=== PATIENT | male | born 1935 | race Two or more races ===

== ENCOUNTER 2017-03-30 08:26 | Inpatient (IN) | payer MEDICARE, OTHER ==
[~2017-03-30] VITALS: Ht 170.2 cm; Wt 67.1 kg
[2017-03-30] VITALS (12 sets, daily range): BP systolic 141–164; BP diastolic 58–89
[~2017-03-30 08:26] MED LIST: ceFAZolin sod 1 GM in NS 55 ML IVPB ONE
--- NOTE | 2017-03-30 08:30 | Anethesia Preoperative Eval ---
Anesthesia Pre-op PMH/ROS General Date of Evaluation: Mar 30, 2017 Anesthesiologist: Yadiel ASA Score: ASA 3 Mallampati Score Class I : Soft palate, uvula, fauces, pillars visible Class II: Soft palate, uvula, fauces visible Class III: Soft palate, base of uvula visible Class IV: Only hard plate visible Mallampati Classification: Class II Surgeon: Nidhi Diagnosis: Prostate Cancer Surgical Procedure: TURP Anesthesia History: none Family History: no anesthesia problems Allergies: Coded Allergies: PENICILLINS (Verified Allergy, Unknown, UNKNOWN, 03/30/17) PATIENT WAS TOLD ONLY THAT HE HAS ALLERGY TO PENICILLIN Medications: see eMAR Past Medical History Cardiovascular: Reports: HTN, other - HLD, Denies: CAD, ID, arrhythmia, valve dz Pulmonary: Denies: COPD, LANDON, asthma, other Gastrointestinal/Genitourinary: Reports: GERD, other - BPH, vertigo, Denies: CRI, ESRD Neurologic/Psychiatric: Reports: TIA, dementia, depression/anxiety, Denies: CVA, other Endocrine: Reports: DM, Denies: hypothyroidism, other, steroids HEENT: Denies: [place] (L), [place] (R), cataract (L), cataract (R), glaucoma, other Hematology/Immune: Denies: DVT, anemia, bleeding disorder, other Musculoskeletal/Integumentary: Reports: OA, other - gout, Denies: DDD, DJD, RA, edema PSxH Narrative: T&A, bladder stones Anesthesia Pre-op Phys. Exam Physician Exam ee chart Constitutional: NAD Cardiovascular: RRR Respiratory: CTA Airway Exam Mallampati Score: Class II MO: limited ROM: limited Teeth: missing, broken Anesthesia Pre-op A/P Labs see chart Studies Pre-op Studies: EKG - sr Risk Assessment & Plan Assessment: ASA III Plan: GA Status Change Before Surgery: No Pre-Antibiotics Drug: Ancef 1g Given Within 1 Hr of Incision: Yes Time Given: 13:00 RUPINDER BARKER M.D. Mar 30, 2017 08:30
[2017-03-30] MEDS ORDERED: CAPTOPRIL25 M1 PO (10:42)
[2017-03-30] MEDS ORDERED: LABETALOL HCL200 MG ORAL (10:43)
[2017-03-30] MEDS ORDERED: ADALAT20 MG ORAL (10:43)
[2017-03-30] MEDS ORDERED: LISINOPRIL20 MG ORAL (10:44)
[2017-03-30] MEDS ORDERED: BENICAR HCT 401 EACH ORAL (10:48)
[2017-03-30] MEDS ORDERED: ZANTAC150 MG ORAL (10:49)
[2017-03-30] MEDS ORDERED: ULORIC40 MG ORAL (10:50)
--- NOTE | 2017-03-30 11:12 | Pre-Procedure Note/Attestation ---
Pre-Procedure Note/Attestation Complete Prior to Procedure Planned Procedure: not applicable Procedure Narrative: Laser ves open cystolopaxy with TURP Indications for Procedure Pre-Operative Diagnosis: bladder stone BPH Attestation I attest that I discussed the nature of the procedure; its benefits; risks and complications; and alternatives (and the risks and benefits of such alternatives ), prior to the procedure, with the patient (or the patient's legal financial representative). I attest that, if there was a reasonable possibility of needing a blood transfusion, the patient (or the patient's legal financial representative) was given the [facility] standardized written summary, pursuant to the [place] Blood Safety Act ([place] Health and Safety Code # 1645, as amended). I attest that I re-evaluated the patient just prior to the surgery and that there has been no change in the patient's H&P, except as documented below: Gigi Terrell MD Mar 30, 2017 11:12
--- NOTE | 2017-03-30 12:35 | Brief Operative Note ---
Immediate Post Operative Note Operative Note Pre-op Diagnosis: bladder stone BPH Procedure: removal and replacement of penille prostheses Post-op Diagnosis: same Post-op Diagnosis: same as pre-op plus Surgeon: Benito Terrell Anesthesia: general Specimen: none Complications: none Condition: stable Estimated Blood Loss: minimal Implant(s) used?: Yes Gigi Terrell MD Mar 30, 2017 12:35
--- NOTE | 2017-03-30 12:36 | Brief Operative Note ---
Immediate Post Operative Note Operative Note Pre-op Diagnosis: bladder stone BPH Procedure: lytholopaxy TURP Post-op Diagnosis: same Gigi Terrell MD Mar 30, 2017 12:36
[2017-03-30] MEDS ORDERED: Zemuron 50mg/5ml Inj IV ONE (12:50)
[2017-03-30] MEDS ORDERED: fentaNYL 100 mcg/2 mL IV ONE (12:50)
[2017-03-30] MEDS ORDERED: NS Irrig 4000ml IRRIG ONE ×2 (12:50→13:40)
[2017-03-30] MEDS ORDERED: Dexamethasone 4mg/ml vial ONE (12:50)
[2017-03-30] MEDS ORDERED: Sterile Water Irrig 1000ml IRRIG ONE (12:50)
[2017-03-30] MEDS ORDERED: Lidocaine 1% MPF 10mg/ml 5ml ONE (12:50)
[2017-03-30] MEDS ORDERED: LR 1000ml ONE (12:50)
[2017-03-30] MEDS ORDERED: Metoclopramide 10mg/2ml Inj ONE (12:50)
--- NOTE | 2017-03-30 13:18 | Immediate Post-Op Evaluation ---
Immediate Post-Op Evalulation Immediate Post-Op Evalulation Procedure: TURP, cystolitholapaxy Date of Evaluation: Mar 30, 2017 Time of Evaluation: 15:08 IV Fluids: 800 Blood Products: 0 Estimated Blood Loss: 150 Urinary Output: 0 Blood Pressure Systolic: 138 Blood Pressure Diastolic: 81 Pulse Rate: 61 Respiratory Rate: 16 O2 Sat by Pulse Oximetry: 100 Temperature (Fahrenheit): 98.6 Pain Score (1-10): 0 Nausea: No Vomiting: No Complications 0 Patient Status: awake, reacts, patent, none Hydration Status: adequate Drug: Ancef 1g Given Within 1 Hr of Incision: Yes Time Given: 13:00 RUPINDER BARKER M.D. Mar 30, 2017 13:18
[2017-03-30] MEDS ORDERED: LR 1000ml 1,000 ML IVLG SCH (13:19)
[2017-03-30] MEDS ORDERED: Ketorolac 30mg Inj IV PRN (13:30)
[2017-03-30] MEDS ORDERED: Hydromorphone 0.5mg/0.5ml inj IVP PRN (13:30)
[2017-03-30] MEDS ORDERED: fentaNYL 100 mcg/2 mL IV PRN (13:30)
[2017-03-30] MEDS ORDERED: DiphenhydrAMINE 50mg/ml Inj IVP PRN (13:30)
[2017-03-30] MEDS ORDERED: LORazepam Inj 2mg/ml 1ml IV PRN (13:30)
--- NOTE | 2017-03-30 15:11 | Brief Operative Note ---
Immediate Post Operative Note Operative Note Pre-op Diagnosis: bladder stone BPH Procedure: lytholopaxy TURP Post-op Diagnosis: same Post-op Diagnosis: same as pre-op Gigi Terrell MD Mar 30, 2017 15:11
[2017-03-30 16:27] LABS: MEAN CORPUSCULAR HEMOGLOBIN 21.7 PG (27.0-31.0); MEAN CORPUSCULAR VOLUME 70 FL (80-99); MEAN PLATELET VOLUME 6.7 FL (6.5-10.1); PLATELET COUNT 690 K/UL (150-450); RED CELL DISTRIBUTION WIDTH 16.4 % (11.6-14.8)
[2017-03-30 16:32] LABS: WHITE BLOOD COUNT 31.3 K/UL (4.8-10.8)
[2017-03-30 17:00] LABS: ANION GAP 13 (5-15); CALCIUM 8.5 mg/dL (8.6-10.2); CARBON DIOXIDE 18 mEQ/L (20-30); CHLORIDE 109 mEQ/L (98-107); CREATININE 1.3 mg/dL (0.7-1.2); HEMOLYSIS 3; POTASSIUM 5.1 mEQ/L (3.4-4.9); SODIUM 140 mEQ/L (135-145)
[2017-03-30] MEDS ORDERED: D5 1/2NS w/KCl 20mEq 1,000 ML IV SCH (17:00)
[2017-03-30] MEDS: Docusate 100mg cap ORAL SCH (17:25)
[2017-03-30] MEDS: HYDROmorphone 1mg/ml Carpuject IVP PRN ×2 (17:31→21:30)
[2017-03-30 17:51] LABS: BAND NEUTROPHILS % (MANUAL) 1 % (0-8); BASOPHILS % (MANUAL) 2 % (0-2); LYMPHOCYTES % (MANUAL) 7 % (20-45); NEUTROPHILS % (MANUAL) 89 % (45-75); TOTAL CELLS COUNTED 100
[2017-03-30 17:52] LABS: EOSINOPHILS % (MANUAL) 0 % (0-3); PLATELET ESTIMATE INCREASED
[2017-03-30 17:53] LABS: ANISOCYTOSIS 2+; HYPOCHROMASIA 2+; MICROCYTES 2+; PLATELET MORPHOLOGY NORMAL; POLYCHROMASIA 1+
--- NOTE | 2017-03-30 18:39 | History and Physical ---
History of Present Illness General Date patient seen: Mar 30, 2017 Present Illness HPI 81 year old male with hx of BPH, HTN, DM, Gout, admitted for elective TURP. Postoperatively pt is admitted for routine post op care. Allergies: Coded Allergies: PENICILLINS (Verified Allergy, Unknown, UNKNOWN, 03/30/17) PATIENT WAS TOLD ONLY THAT HE HAS ALLERGY TO PENICILLIN Medication History Scheduled Captopril (Captopril), 25 MG PO PRN, (Reported) Febuxostat (Uloric), 40 MG ORAL DAILY, (Reported) Labetalol Hcl* (Normodyne*), 200 MG ORAL EVERY 12 HOURS, (Reported) Lisinopril (Lisinopril*), 40 MG ORAL DAILY, (Reported) Nifedipine (Nifedipine*), 30 MG ORAL BID, (Reported) Olmesartan/Hydrochlorothiazide 40-12.5MG (Benicar Hct 40-12.5 Mg Tablet), 1 TAB ORAL HS, (Reported) Ranitidine Hcl* (Zantac*), 150 MG ORAL DAILY, (Reported) Patient History Healthcare decision maker Y Resuscitation status Full Code Advanced Directive on File No Past Medical/Surgical History Past Medical/Surgical History: (1) BPH (benign prostatic hyperplasia) (2) Hypertension (3) Gout (4) Diabetes mellitus Review of Systems All Other Systems: negative except mentioned in HPI Physical Exam General Appearance: WD/WN, no apparent distress Lines, tubes and drains: peripheral HEENT: normocephalic, atraumatic Neck: non-tender, normal alignment, limited range of motion Respiratory/Chest: lungs clear, normal breath sounds Cardiovascular/Chest: normal peripheral pulses, normal rate Abdomen: normal bowel sounds, non tender Genitourinary/Rectal: normal genital exam Extremities: normal range of motion Skin Exam: normal pigmentation Neurologic: youth pastor II-XII grossly normal Last 24 Hour Vital Signs Date Time Temp Pulse Resp B/P Pulse Ox O2 Delivery O2 Flow Rate FiO2 03/30/17 16:21 98.0 03/30/17 16:09 98.0 03/30/17 16:05 98.0 68 16 160/67 99 Nasal Cannula 3.0 03/30/17 15:51 73 17 164/70 99 Nasal Cannula 3.0 03/30/17 15:40 73 18 161/67 99 Nasal Cannula 3.0 03/30/17 15:36 61 16 100 03/30/17 15:25 75 15 163/69 100 Nasal Cannula 3.0 03/30/17 15:13 78 21 162/89 100 Nasal Cannula 3.0 03/30/17 15:08 68 11 150/60 100 Simple Mask 6.0 03/30/17 15:03 98.6 68 11 164/66 100 Simple Mask 6.0 03/30/17 14:45 97.0 57 20 153/60 95 Room Air 03/30/17 14:30 96.2 70 20 154/67 95 Room Air 03/30/17 10:25 97.1 62 18 150/60 97 Room Air Laboratory Tests Test 03/30/17 10:35 03/30/17 16:15 Potassium Level 4.7 mEQ/L (3.4-4.9) 5.1 mEQ/L (3.4-4.9) H White Blood Count 31.3 K/UL (4.8-10.8) *H Red Blood Count 7.10 M/UL (4.70-6.10) H Hemoglobin 15.4 G/DL (14.2-18.0) Hematocrit 49.8 % (42.0-52.0) Mean Corpuscular Volume 70 FL (80-99) L Mean Corpuscular Hemoglobin 21.7 PG (27.0-31.0) L Mean Corpuscular Hemoglobin Concent 31.0 G/DL (32.0-36.0) L Red Cell Distribution Width 16.4 % (11.6-14.8) H Platelet Count 690 K/UL (150-450) H Mean Platelet Volume 6.7 FL (6.5-10.1) Neutrophils (%) (Auto) % (45.0-75.0) Lymphocytes (%) (Auto) % (20.0-45.0) Monocytes (%) (Auto) % (1.0-10.0) Eosinophils (%) (Auto) % (0.0-3.0) Basophils (%) (Auto) % (0.0-2.0) Differential Total Cells Counted 100 Neutrophils % (Manual) 89 % (45-75) H Lymphocytes % (Manual) 7 % (20-45) L Monocytes % (Manual) 1 % (1-10) Eosinophils % (Manual) 0 % (0-3) Basophils % (Manual) 2 % (0-2) Band Neutrophils 1 % (0-8) Platelet Estimate Increased H Platelet Morphology Normal Polychromasia 1+ Hypochromasia 2+ Anisocytosis 2+ Microcytosis 2+ Sodium Level 140 mEQ/L (135-145) Chloride Level 109 mEQ/L (98-107) H Carbon Dioxide Level 18 mEQ/L (20-30) L Anion Gap 13 (5-15) Blood Urea Nitrogen 37 mg/dL (7-23) H Creatinine 1.3 mg/dL (0.7-1.2) H Estimat Glomerular Filtration Rate mL/min (>60) Glucose Level 164 mg/dL (74-106) H Calcium Level 8.5 mg/dL (8.6-10.2) L Height (Feet): 5 Height (Inches): 7.00 Weight (Pounds): 148 Medications Current Medications Medications (Trade) Dose Ordered Sig/Harrison Route PRN Reason Start Time Stop Time Status Last Admin Dose Admin Acetaminophen (Tylenol) 650 mg Q6H PRN ORAL Mild Pain (Pain Scale 1-3) 03/30/17 15:45 04/29/17 15:44 Acetaminophen 650 mg 650 mg Q4H PRN ORAL FEVER 03/30/17 15:45 04/29/17 15:44 Cefazolin Sodium (Ancef 2gm/50ml premix) 50 ml @ 100 mls/hr Q8H IV 03/30/17 21:00 03/31/17 05:29 Dextrose/Sodium Chloride (D5 0.45% NS) 1,000 ml @ 100 mls/hr Q10H IV 03/30/17 18:40 04/29/17 18:39 Docusate Sodium (Colace) 100 mg TWICE A DAY ORAL 03/30/17 18:00 04/29/17 17:59 03/30/17 17:25 Hydromorphone HCl (Dilaudid) 1 mg Q3H PRN IVP pain score 4-6 03/30/17 15:45 04/06/17 15:44 03/30/17 17:31 Labetalol HCl (Normodyne) 200 mg EVERY 12 HOURS ORAL 03/30/17 21:00 04/29/17 20:59 Lisinopril (Prinivil) 40 mg DAILY ORAL 03/31/17 09:00 04/30/17 08:59 Non-Formulary Medication (Non-Formulary Med) 1 ea BID ORAL 03/30/17 21:00 04/29/17 20:59 UNV Non-Formulary Medication (Non-Formulary Med) 1 ea DAILY ORAL 03/30/17 21:00 04/29/17 20:59 UNV Non-Formulary Medication (Non-Formulary Med) 1 ea DAILY ORAL 03/31/17 09:00 04/30/17 08:59 UNV Ondansetron HCl (Zofran) 4 mg Q6H PRN IVP Nausea & Vomiting 03/30/17 15:45 04/29/17 15:44 Ranitidine HCl 150 mg 150 mg DAILY ORAL 03/31/17 09:00 04/30/17 08:59 Temazepam (Restoril) 7.5 mg HSPRN PRN ORAL Insomnia 03/30/17 15:45 04/06/17 15:44 Assessment/Plan Problem List: (1) S/P TURP ICD Codes: Z90.79 - Acquired absence of other genital organ(s) SNOMED: 49312042, 329055915 (2) BPH (benign prostatic hyperplasia) ICD Codes: N40.0 - Benign prostatic hyperplasia without lower urinary tract symptoms SNOMED: 488252805, 039011935 (3) Hypertension ICD Codes: I10 - Essential (primary) hypertension SNOMED: 39610097 (4) Gout ICD Codes: M10.9 - Gout, unspecified SNOMED: 15527089 (5) Diabetes mellitus ICD Codes: E11.9 - Type 2 diabetes mellitus without complications SNOMED: 40751417 Assessment/Plan pain management bladder irrigation sliding scale, insuline coverage, diabetic diet check electrolytes dvt prophylaxis PALMIRA LANGSTON Mar 30, 2017 18:39
[2017-03-30] MEDS: D5 1/2NS 1,000 ML IV SCH (18:56)
[2017-03-30] MEDS: Labetalol 200mg tab ORAL SCH (21:13)
[2017-03-30] MEDS: ceFAZolin 2gm/50 ML IV SCH (21:13)
[2017-03-30] MEDS ORDERED: ceFAZolin sod 2 GM in D5W 110 ML IV SCH (22:00)
[2017-03-31] VITALS (15 sets, daily range): BP systolic 0–145; BP diastolic 0–63
[2017-03-31] MEDS: HYDROmorphone 1mg/ml Carpuject IVP PRN ×3 (01:42→10:09)
[2017-03-31] MEDS: ceFAZolin 2gm/50 ML IV SCH (04:16)
[2017-03-31] MEDS: D5 1/2NS 1,000 ML IV SCH ×2 (04:16→14:42)
[2017-03-31 06:21] LABS: MEAN CORPUSCULAR HEMOGLOBIN 21.2 PG (27.0-31.0); MEAN CORPUSCULAR HGB CONC 29.5 G/DL (32.0-36.0); MEAN CORPUSCULAR VOLUME 72 FL (80-99); MEAN PLATELET VOLUME 7.1 FL (6.5-10.1); RED BLOOD COUNT 6.16 M/UL (4.70-6.10); RED CELL DISTRIBUTION WIDTH 16.9 % (11.6-14.8)
[2017-03-31 06:34] LABS: PLATELET COUNT 1021 K/UL (150-450); WHITE BLOOD COUNT 47.3 K/UL (4.8-10.8)
[2017-03-31 06:51] LABS: CARBON DIOXIDE 19 mEQ/L (20-30); CHLORIDE 105 mEQ/L (98-107); CREATININE 2.3 mg/dL (0.7-1.2); HEMOLYSIS 3; SODIUM 136 mEQ/L (135-145)
[2017-03-31 07:07] LABS: ANION GAP 12 (5-15)
[2017-03-31 07:08] LABS: POTASSIUM 6.3 mEQ/L (3.4-4.9)
[2017-03-31] MEDS: Docusate 100mg cap ORAL SCH (08:41)
[2017-03-31] MEDS ORDERED: Lisinopril 20mg tab ORAL SCH (09:00)
[2017-03-31] MEDS ORDERED: Sodium Polystyrene Sulfonate 15gm Powder ORAL ONE ×3 (09:00→20:00)
[2017-03-31] MEDS ORDERED: Captopril 25mg tab ORAL SCH (09:00)
[2017-03-31] MEDS: Labetalol 200mg tab ORAL SCH (09:00)
[2017-03-31 10:17] LABS: BAND NEUTROPHILS % (MANUAL) 3 % (0-8); BASOPHILS % (MANUAL) 0 % (0-2); EOSINOPHILS % (MANUAL) 0 % (0-3); LYMPHOCYTES % (MANUAL) 5 % (20-45); MYELOCYTES % 1 % (0-0); NEUTROPHILS % (MANUAL) 86 % (45-75); NUCLEATED RED BLOOD CELLS 1 /100 WBC; PLATELET ESTIMATE INCREASED; PLATELET MORPHOLOGY NORMAL; TOTAL CELLS COUNTED 100
[2017-03-31 10:18] LABS: ANISOCYTOSIS 1+; HYPOCHROMASIA 2+
[2017-03-31 10:19] LABS: MICROCYTES 2+
[2017-03-31] MEDS ORDERED: D5 1/2NS 1000ml IV ONE (10:47)
[2017-03-31] MEDS ORDERED: Tubing IV Secondary IV ONE (10:47)
--- NOTE | 2017-03-31 11:19 | 48 Hour Post Anesthesia Eval ---
Post Anesthesia Evaluation Procedure: TURP, cystolitholapaxy Date of Evaluation: Mar 31, 2017 Time of Evaluation: 11:19 Nausea: No Vomiting: No Hydration Status: adequate Follow-up care needed: N/A Francisco Rankin MD Mar 31, 2017 11:19
--- NOTE | 2017-03-31 11:52 | Pulmonology Progress Note ---
Assessment/Plan Problems: (1) Hyperkalemia (2) ATN (acute tubular necrosis) (3) S/P TURP (4) Diabetes mellitus (5) Gout (6) BPH (benign prostatic hyperplasia) (7) Hypertension Assessment/Plan IV fluids Kayexalate renal evaluation check wbc continue Gent/ vanco check electroltyes this afternoon Subjective ROS Limited/Unobtainable: No Interval Events: still in pain Allergies: Coded Allergies: PENICILLINS (Verified Allergy, Unknown, UNKNOWN, 03/30/17) PATIENT WAS TOLD ONLY THAT HE HAS ALLERGY TO PENICILLIN Objective Last 24 Hour Vital Signs Date Time Temp Pulse Resp B/P Pulse Ox O2 Delivery O2 Flow Rate FiO2 03/31/17 08:00 96.2 62 18 129/54 97 Room Air 03/31/17 04:00 96.4 61 18 128/55 97 Room Air 03/31/17 00:00 96.8 56 18 145/63 97 Room Air 03/30/17 22:06 62 141/58 03/30/17 21:13 62 141/58 03/30/17 20:00 96.4 61 18 145/59 96 Room Air 03/30/17 19:00 97.6 62 20 141/58 95 Room Air 03/30/17 16:21 98.0 03/30/17 16:09 98.0 03/30/17 16:05 98.0 68 16 160/67 99 Nasal Cannula 3.0 03/30/17 15:51 73 17 164/70 99 Nasal Cannula 3.0 03/30/17 15:40 73 18 161/67 99 Nasal Cannula 3.0 03/30/17 15:36 61 16 100 03/30/17 15:25 75 15 163/69 100 Nasal Cannula 3.0 03/30/17 15:13 78 21 162/89 100 Nasal Cannula 3.0 03/30/17 15:08 68 11 150/60 100 Simple Mask 6.0 03/30/17 15:03 98.6 68 11 164/66 100 Simple Mask 6.0 03/30/17 14:45 97.0 57 20 153/60 95 Room Air 03/30/17 14:30 96.2 70 20 154/67 95 Room Air Intake and Output 03/30/17 03/31/17 19:00 07:00 Intake Total 1550 ml 37877 ml Output Total 4850 ml 2900 ml Balance -3300 ml 57504 ml Intake Oral 350 ml IV Total 1200 ml 1000 ml Other 76971 ml Output Urine Total 700 ml 2900 ml Estimated Blood Loss 150 ml Other 4000 ml # Voids 1 General Appearance: cachetic HEENT: normocephalic, atraumatic Respiratory/Chest: chest wall non-tender, lungs clear Cardiovascular: normal peripheral pulses, normal rate Abdomen: normal bowel sounds, soft, non tender Genitourinary: normal external genitalia Skin: no rash, no lesions Laboratory Tests 03/30/17 16:15: White Blood Count 31.3*H, Red Blood Count 7.10H, Hemoglobin 15.4, Hematocrit 49.8, Mean Corpuscular Volume 70L, Mean Corpuscular Hemoglobin 21.7L, Mean Corpuscular Hemoglobin Concent 31.0L, Red Cell Distribution Width 16.4H, Platelet Count 690H, Mean Platelet Volume 6.7, Neutrophils (%) (Auto) , Lymphocytes (%) (Auto) , Monocytes (%) (Auto) , Eosinophils (%) (Auto) , Basophils (%) (Auto) , Differential Total Cells Counted 100, Neutrophils % ( Manual) 89H, Lymphocytes % (Manual) 7L, Monocytes % (Manual) 1, Eosinophils % ( Manual) 0, Basophils % (Manual) 2, Band Neutrophils 1, Platelet Estimate IncreasedH, Platelet Morphology Normal, Polychromasia 1+, Hypochromasia 2+, Anisocytosis 2+, Microcytosis 2+, Sodium Level 140, Potassium Level 5.1H, Chloride Level 109H, Carbon Dioxide Level 18L, Anion Gap 13, Blood Urea Nitrogen 37H, Creatinine 1.3H, Estimat Glomerular Filtration Rate , Glucose Level 164H, Calcium Level 8.5L 03/31/17 05:45: White Blood Count 47.3#*H, Red Blood Count 6.16H, Hemoglobin 13.0L, Hematocrit 44.1, Mean Corpuscular Volume 72L, Mean Corpuscular Hemoglobin 21.2L, Mean Corpuscular Hemoglobin Concent 29.5L, Red Cell Distribution Width 16.9H, Platelet Count 1021*H, Mean Platelet Volume 7.1, Neutrophils (%) (Auto) , Lymphocytes (%) (Auto) , Monocytes (%) (Auto) , Eosinophils (%) (Auto) , Basophils (%) (Auto) , Differential Total Cells Counted 100, Neutrophils % ( Manual) 86H, Lymphocytes % (Manual) 5L, Monocytes % (Manual) 5, Eosinophils % ( Manual) 0, Basophils % (Manual) 0, Band Neutrophils 3, Platelet Estimate IncreasedH, Platelet Morphology Normal, Hypochromasia 2+, Anisocytosis 1+, Microcytosis 2+, Sodium Level 136, Potassium Level 6.3*H, Chloride Level 105, Carbon Dioxide Level 19L, Anion Gap 12, Blood Urea Nitrogen 45H, Creatinine 2.3# H, Estimat Glomerular Filtration Rate , Glucose Level 249H, Calcium Level 8.0L, Myelocytes % 1H, Nucleated Red Blood Cells 1 Current Medications Medications (Trade) Dose Ordered Sig/Harrison Route PRN Reason Start Time Stop Time Status Last Admin Dose Admin Acetaminophen (Tylenol) 650 mg Q4H PRN ORAL FEVER 03/30/17 15:45 04/29/17 15:44 Acetaminophen (Tylenol) 650 mg Q6H PRN ORAL Mild Pain (Pain Scale 1-3) 03/30/17 15:45 04/29/17 15:44 03/31/17 02:49 Dextrose/Sodium Chloride (D5 0.45% NS) 1,000 ml @ 100 mls/hr Q10H IV 03/30/17 18:40 04/29/17 18:39 03/31/17 04:16 Docusate Sodium (Colace) 100 mg TWICE A DAY ORAL 03/30/17 18:00 04/29/17 17:59 03/31/17 08:41 Gentamicin Sulfate 130 mg/ Sodium Chloride 113.25 ml @ 113.25 mls/hr Q24H IVPB 03/31/17 12:30 04/07/17 12:29 Gentamicin Sulfate/Sodium Chloride (Gentamicin inj/ Sodium Chloride) 113.75 ml @ 113.75 mls/hr ONCE ONCE IVPB 03/31/17 13:00 03/31/17 13:59 Hydromorphone HCl (Dilaudid) 1 mg Q3H PRN IVP pain score 4-6 03/30/17 15:45 04/06/17 15:44 03/31/17 10:09 Labetalol HCl (Normodyne) 200 mg EVERY 12 HOURS ORAL 03/30/17 21:00 04/29/17 20:59 03/30/17 21:13 Lisinopril (Prinivil) 40 mg DAILY ORAL 03/31/17 09:00 04/30/17 08:59 Nifedipine (Procardia XL) 30 mg Q12HR ORAL 03/30/17 21:00 04/29/17 20:59 03/30/17 22:06 Non-Formulary Medication (Non-Formulary Med) 1 ea DAILY ORAL 03/31/17 09:00 04/30/17 08:59 UNV Non-Formulary Medication 1 ea 1 ea DAILY ORAL 03/30/17 21:00 04/29/17 20:59 UNV Ondansetron HCl (Zofran) 4 mg Q6H PRN IVP Nausea & Vomiting 03/30/17 15:45 04/29/17 15:44 03/30/17 23:27 Ranitidine HCl 150 mg 150 mg DAILY ORAL 03/31/17 09:00 04/30/17 08:59 03/31/17 08:41 Sodium Chloride 1,000 ml @ 50 mls/hr Q20H IV 03/31/17 08:00 04/01/17 11:59 03/31/17 08:37 Temazepam (Restoril) 7.5 mg HSPRN PRN ORAL Insomnia 03/30/17 15:45 04/06/17 15:44 Vancomycin HCl 1 gm/Dextrose 275 ml @ 183.708 mls/hr Q36H IVPB 04/02/17 02:00 04/07/17 01:59 Vancomycin HCl/ Dextrose 250 ml @ 166.667 mls/hr ONCE ONCE IVPB 03/31/17 14:00 03/31/17 15:29 PALMIRA LANGSTON Mar 31, 2017 11:52
[2017-03-31 12:13] LABS: URIC ACID 8.9 mg/dL (3.0-7.5)
[2017-03-31] MEDS ORDERED: HYDROmorphone 1mg/ml Carpuject IVP PRN (12:15)
[2017-03-31] MEDS ORDERED: GENTAMICIN IVPB SCH (12:30)
[2017-03-31] MEDS ORDERED: NS IVPB SCH (12:30)
[2017-03-31] MEDS ORDERED: GENTAMICIN IVPB ONE (13:00)
[2017-03-31] MEDS ORDERED: NS IVPB ONE (13:00)
[2017-03-31] MEDS ORDERED: Vancomycin 1250mg/D5W 250ml IVPB ONE (14:00)
[2017-03-31 16:09] LABS: CALCIUM 7.8 mg/dL (8.6-10.2); CARBON DIOXIDE 12 mEQ/L (20-30); CHLORIDE 107 mEQ/L (98-107); CREATININE 3.1 mg/dL (0.7-1.2); HEMOLYSIS 6; SODIUM 141 mEQ/L (135-145)
[2017-03-31 16:15] LABS: ANION GAP 22 (5-15)
--- NOTE | 2017-03-31 16:31 | Consultation ---
Consult Note Consult Note asked to eval for rising Cr 81 year old male with hx of BPH, HTN, DM, Gout, admitted for elective TURP. Postoperatively pt is admitted for routine post op care. Patient post TURP examined- data reviewed- discussed with RN awake NAD no complaint awake , on Barnett irrigation , bag bloody BP 109/53 ME 70 RR 18 afebrile no wheeze abd mild distension Allergies: Coded Allergies: PENICILLINS (Verified Allergy, Unknown, UNKNOWN, 03/30/17) PATIENT WAS TOLD ONLY THAT HE HAS ALLERGY TO PENICILLIN Medication History Captopril (Captopril), 25 MG PO PRN, (Reported) Febuxostat (Uloric), 40 MG ORAL DAILY, (Reported) Labetalol Hcl* (Normodyne*), 200 MG ORAL EVERY 12 HOURS, (Reported) Lisinopril (Lisinopril*), 40 MG ORAL DAILY, (Reported) Nifedipine (Nifedipine*), 30 MG ORAL BID, (Reported) Olmesartan/Hydrochlorothiazide 40-12.5MG (Benicar Hct 40-12.5 Mg Tablet), 1 TAB ORAL HS, (Reported) Ranitidine Hcl* (Zantac*), 150 MG ORAL DAILY, (Reported) Full Code Past Medical/Surgical History: (1) BPH (benign prostatic hyperplasia) (2) Hypertension (3) Gout (4) Diabetes mellitus . Assessment/Plan Status: (1) Hyperkalemia (2) Acute Renal Failure ? on CRI (3) S/P TURP (4) Diabetes mellitus/ Nephropathy (5) Gout (6) BPH (benign prostatic hyperplasia) (7) Hypertension Plan: Adjust BP meds and BS avoid Nephrotoxics- Kayexelate given earlier Patient on Vanco and Genta: Favor the change to Rocephin and Clinda Watch renal parameters and BS and electrolytes IV to NS check vanco and Genta levels in am Per orders ERIKA ORTIZ Mar 31, 2017 16:30
[2017-03-31 16:47] LABS: POTASSIUM 6.3 mEQ/L (3.4-4.9)
[2017-03-31] MEDS ORDERED: Norco 5mg/325mg tab ORAL PRN (18:00)
[2017-03-31] MEDS ORDERED: Docusate 100mg cap ORAL SCH (18:00)
[2017-03-31] MEDS ORDERED: cefTRIAXone 1 GM in D5W 55 ML IVPB SCH (18:00)
--- NOTE | 2017-03-31 19:09 | Physician Query ---
PLEASE COMPLETE DOCUMENT BEFORE SIGNING Dear Dr. James Date: _03/31/2017 Spanish Interpreter/CDS Name: _Bryn Narvaez MD__ Spanish Interpreter/CDS Phone No.: _[phone] __ Exercise your independent professional judgment when responding to the query. Questions asked do not imply a particular answer is desired or expected. We greatly appreciate your clarification on this issue. CLINICAL DOCUMENTATION STATES: "S/P TURP" as per Dr. Bonilla's Progress Note CLINICAL FINDINGS SHOW: WBC increased to 47.3 (on 03/31/2017) from 31.3 (on 03/30/2017) Plt Count increased to 1021 (on 03/31/2017) from 690 (on 03/30/2017) Please respond to the following question: Is there a diagnosis specific to these symptoms or values? If so please state below. 1.) PHYSICIAN RESPONSE: 2.)Condition Present on Admission: [] Yes [] No []Clinically Undeterminable Please also document in your Progress Notes and/or Discharge Summary and indicate if the condition was present on admission. Yuly Bonilla MD Date & Time [facility]
[2017-03-31 19:45] LABS: ABG ALLEN TEST POSITIVE; ABG BASE EXCESS -20.3; ABG PCO2 30.1 mmHg (35.0-45.0)
[2017-03-31] MEDS ORDERED: Calcium Gluconate 1gm/10ml vial IVP ONE (20:00)
[2017-03-31] MEDS ORDERED: Sodium Polystyrene Sulfonate Enema RECTAL ONE ×2 (21:00→21:30)
[2017-03-31] MEDS: DuoNeb 0.5-3(2.5)mg/3ml neb HHN SCH (21:00)
[2017-03-31] MEDS ORDERED: Labetalol 200mg tab ORAL SCH (21:00)
[2017-03-31 21:10] LABS: MEAN CORPUSCULAR HEMOGLOBIN 21.8 PG (27.0-31.0); MEAN CORPUSCULAR HGB CONC 29.4 G/DL (32.0-36.0); MEAN CORPUSCULAR VOLUME 74 FL (80-99); MEAN PLATELET VOLUME 6.8 FL (6.5-10.1); PLATELET COUNT 569 K/UL (150-450); RED BLOOD COUNT 3.94 M/UL (4.70-6.10); RED CELL DISTRIBUTION WIDTH 17.6 % (11.6-14.8)
[2017-03-31 21:21] LABS: ALANINE AMINOTRANSFERASE 114 U/L (3-41); ALBUMIN/GLOBULIN RATIO 1.7 (1.0-2.7); ASPARTATE AMINO TRANSFERASE 141 U/L (5-40); CALCIUM 7.2 mg/dL (8.6-10.2); CARBON DIOXIDE 11 mEQ/L (20-30); CHLORIDE 109 mEQ/L (98-107); CREATININE 3.4 mg/dL (0.7-1.2); HEMOLYSIS 10; MAGNESIUM 2.1 mg/dL (1.7-2.5); PHOSPHORUS 8.8 mg/dL (2.5-4.8); SODIUM 139 mEQ/L (135-145); TOTAL PROTEIN 3.6 g/dL (6.6-8.7); WHITE BLOOD COUNT 55.5 K/UL (4.8-10.8)
[2017-03-31 21:27] LABS: ANION GAP 19 (5-15)
[2017-03-31 21:39] LABS: POTASSIUM 6.5 mEQ/L (3.4-4.9)
[2017-03-31 21:55] LABS: BAND NEUTROPHILS % (MANUAL) 22 % (0-8); BASOPHILS % (MANUAL) 0 % (0-2); EOSINOPHILS % (MANUAL) 0 % (0-3); LYMPHOCYTES % (MANUAL) 9 % (20-45); NEUTROPHILS % (MANUAL) 65 % (45-75); PLATELET ESTIMATE INCREASED; TOTAL CELLS COUNTED 100
[2017-03-31 21:59] LABS: ANISOCYTOSIS 2+; HYPOCHROMASIA 2+; MICROCYTES 2+; POLYCHROMASIA 1+
[2017-03-31] MEDS ORDERED: Clindamycin 600mg 50 ML IV SCH (22:00)
--- NOTE | 2017-03-31 22:13 | Emergency Room Report ---
History of Present Illness General Source: Patient, Family Member Present Illness Allergies: Coded Allergies: PENICILLINS (Verified Allergy, Unknown, UNKNOWN, 03/30/17) PATIENT WAS TOLD ONLY THAT HE HAS ALLERGY TO PENICILLIN Nursing Documentation-PMH Hx Cardiac Problems: Yes Hx Hypertension: Yes Hx Diabetes: Yes Hx Cancer: No Hx Gastrointestinal Problems: Yes Hx Neurological Problems: Yes - VERTIGO Hx Transient Ischemic Attacks: Yes - 2015 Hx Dementia: Yes Hx Memory Loss: Yes Physical Exam Vital Signs Date Time Temp Pulse Resp B/P Pulse Ox O2 Delivery O2 Flow Rate FiO2 03/30/17 10:25 97.1 62 18 150/60 97 Room Air 03/30/17 15:03 6.0 03/31/17 20:28 100 Procedures Critical Care Time Critical Care Time i. I feel this is a highly complex case requiring extensive working including EKG/Rhythm strip, Xray/CT/US, Blood/urine lab work, repeat exams while in ED, and administration of strong opiates/narcotics for pain control, admission to hospital or close patient follow up. Total time: 30 min bedside evaluation and treatment excludes procedures (EKG). Reason for critical care: Hypotensive, respiratory distress, cardiac arrest Possible complications: hypotension, hypertension, TN, shock, arrhythmias, metabolic acidosis, end organ damage, respiratory failure. Interventions: Central line, intubation, chest compressions, ACLS medications, defibrillation Course: I was asked to place a central line in this patient because he was hypotensive not responsive to fluids. During course of central line placement patient became unresponsive and lost pulses. Chest compressions started. Patient was intubated. Initial rhythm asystole. Patient given ACLS medications. Calcium, bicarbonate given. Patient had one episode of ventricular fibrillation and was shocked. Patient did ultimately regained pulses. pressors started Consultations: nursing staff, EMS, family Performed by: Dr Alexander Tolerated well condition = critical j. because of unstable vital signs this patient had a condition that could potentially threaten life or limb. I feel this is a critical patient who required my full attention while patient was considered critical. Total Critical Care Time excluding procedures was greater than 35 minutes Cardioversion Cardioversion: Consent: Emergent Indication: Other - vfib Type: Desynchonis Response: Other - asystole Attempts: One Patient Tolerated: Well Complications: None Central Line Central Line : Consent: Emergent Central Line Lumen: triple Maximal Sterile Barrier Tech: yes cap, yes mask, yes sterile gown, yes sterile gloves, yes large sterile sheet, yes hand hygiene, yes chlorhexidine prep Central Line Postion: femoral (R) Anesthesia: Lidocaine Complications: none Central Line Post Position: sutured, good blood return Attempts: One Patient Tolerated: Well Complications: None CPR/Code Blue CPR/Code Blue Narrative see code blue sheet for full CODE BLUE narrative Intubation Intubation : Consent: Emergent Intubation Method: orotracheal Tube Size (cm): 7.5 Breath Sounds after Intubation: equal Intubation Complications: no complications Post Intubation Xray: Yes Attempts: One Patient Tolerated: Well Complications: None Medical Decision Making Diagnostic Impression: Primary Impression: Cardiac arrest Additional Impression: Respiratory distress ER Course I was called to the ICU to place a central line in this patient. Patient was admitted for TURP. Patient was hypotensive all today not responsive to fluids. During central line placement patient became unresponsive and aspirated and lost pulses. In asystole. CPR started. I intubated the patient. patient given ACLS medications. Patient had one episode of ventricular fibrillation and was shocked. Patient returned to asystole and CPR continued. Patient given total of epinephrine x5, calcium x1, bicarbonate x1. Patient did regain pulses. levophed started through central line Family informed of patient's critical status Last Vital Signs Date Time Temp Pulse Resp B/P Pulse Ox O2 Delivery O2 Flow Rate FiO2 03/31/17 22:00 71 17 Mechanical Ventilator 100 03/31/17 20:28 15.0 03/31/17 20:28 100 03/31/17 16:00 96.2 109/51 Status: improved Disposition: ADMITTED INPATIENT Condition: Critical Referrals: Gigi Terrell MD (PCP) Patient Instructions: Transurethral Resection of the Prostate, Care After SAMANTHA ALEXANDER M.D. Mar 31, 2017 22:13
[2017-03-31 22:33] LABS: ABG ALLEN TEST POSITIVE; ABG BASE EXCESS -26; ABG PCO2 53.7 mmHg (35.0-45.0)
[2017-03-31] MEDS ORDERED: Sodium Bicarbonate 50ml Carp ONE ×4 (23:01→23:18)
[2017-03-31 23:06] LABS: MEAN CORPUSCULAR HGB CONC 29.7 G/DL (32.0-36.0); MEAN CORPUSCULAR VOLUME 74 FL (80-99); MEAN PLATELET VOLUME 6.6 FL (6.5-10.1); PLATELET COUNT 431 K/UL (150-450); RED BLOOD COUNT 3.24 M/UL (4.70-6.10); RED CELL DISTRIBUTION WIDTH 17.2 % (11.6-14.8)
[2017-03-31 23:08] LABS: WHITE BLOOD COUNT 80.6 K/UL (4.8-10.8)
[2017-03-31] MEDS ORDERED: Sodium Bicarbonate 50ml Carp IV ONE ×2 (23:15→23:30)
[2017-03-31] MEDS ORDERED: Sodium Bicarbonate 100 ML in D5W 1000ml 1,000 ML IV ONE (23:15)
[2017-03-31 23:18] LABS: ALANINE AMINOTRANSFERASE 385 U/L (3-41); ALBUMIN/GLOBULIN RATIO 1.4 (1.0-2.7); ANION GAP 19 (5-15); ASPARTATE AMINO TRANSFERASE 417 U/L (5-40); CALCIUM 6.8 mg/dL (8.6-10.2); CARBON DIOXIDE 12 mEQ/L (20-30); CHLORIDE 114 mEQ/L (98-107); CREATININE 3.3 mg/dL (0.7-1.2); HEMOLYSIS 12; POTASSIUM 5.5 mEQ/L (3.4-4.9); SODIUM 145 mEQ/L (135-145); TOTAL PROTEIN 2.7 g/dL (6.6-8.7)
[2017-03-31] MEDS ORDERED: DOPamine 400mg/250ml 250 ML IV SCH ×2 (23:30→23:45)
[2017-03-31] MEDS ORDERED: Phenylephrine 50 MG in D5W 245 ML IV SCH (23:30)
[2017-03-31] MEDS ORDERED: Phenylephrine 10mg/ml 5ml vial IV ONE (23:34)
[2017-03-31 23:36] LABS: BAND NEUTROPHILS % (MANUAL) 25 % (0-8); LYMPHOCYTES % (MANUAL) 11 % (20-45); METAMYELOCYTES % 9 % (0-0); MYELOCYTES % 3 % (0-0); NEUTROPHILS % (MANUAL) 46 % (45-75); NUCLEATED RED BLOOD CELLS 2 /100 WBC; TOTAL CELLS COUNTED 100
[2017-03-31 23:38] LABS: ANISOCYTOSIS 2+; BASOPHILS % (MANUAL) 0 % (0-2); EOSINOPHILS % (MANUAL) 0 % (0-3); HYPOCHROMASIA 1+; MICROCYTES 2+; PLATELET ESTIMATE INCREASED; PLATELET MORPHOLOGY NORMAL; POLYCHROMASIA 1+
--- NOTE | 2017-03-31 23:42 | General Progress Note ---
Progress Note Progress Note Pt was transferred to ICU because of hyperkalemia. Received kayexalate, d50 + insulin, Ca Gluconate and Bicarb. Pt had two episodes of cardiac arrest. pt was resuscitated twice. He was started on on Levophed drip and later on Dopamine and Neosynephrine drip. Received more than 10 liters of NS and around 15 amp of bicarb. Pt remains still very tenuous and very critical. PALMIRA LANGSTON Mar 31, 2017 23:42
[2017-03-31] MEDS ORDERED: EPINEPHrine 1mg/10ml Syringe IV ONE (23:55)
[2017-04-01] VITALS: BP 0/0
--- NOTE | 2017-04-01 00:03 | General Progress Note ---
Assessment/Plan Status: other Status Narrative critical condition Call Dr Ferrell stat to evaluate the patient Er Dr call to place central line and intubate Assessment/Plan intubate fluids bicarb and insulin per critical care Dr Ferrell Subjective Date patient seen: Mar 31, 2017 Allergies: Coded Allergies: PENICILLINS (Verified Allergy, Unknown, UNKNOWN, 03/30/17) PATIENT WAS TOLD ONLY THAT HE HAS ALLERGY TO PENICILLIN Subjective Pationt was transfered to the ICU stat with decrease BP and difficulty breathing the rest of the not is dictated Objective Last 24 Hour Vital Signs Date Time Temp Pulse Resp B/P Pulse Ox O2 Delivery O2 Flow Rate FiO2 03/31/17 22:00 71 17 Mechanical Ventilator 100 03/31/17 21:30 71 17 100 03/31/17 21:30 74/36 03/31/17 20:28 Non-Rebreather 15.0 100 03/31/17 20:28 100 Non-Rebreather 15.0 100 03/31/17 16:00 96.2 63 16 109/51 96 Room Air 03/31/17 12:00 96.2 67 16 130/55 97 Room Air 03/31/17 09:00 62 114/51 03/31/17 09:00 114/51 03/31/17 09:00 62 114/51 03/31/17 08:00 96.2 62 18 129/54 97 Room Air 03/31/17 04:00 96.4 61 18 128/55 97 Room Air 03/31/17 00:00 96.8 56 18 145/63 97 Room Air Intake and Output 03/30/17 03/31/17 19:00 07:00 Intake Total 1550 ml 81725 ml Output Total 4850 ml 2900 ml Balance -3300 ml 65813 ml Intake Oral 350 ml IV Total 1200 ml 1000 ml Other 77303 ml Output Urine Total 700 ml 2900 ml Estimated Blood Loss 150 ml Other 4000 ml # Voids 1 Laboratory Tests 03/31/17 05:45: White Blood Count 47.3#*H, Red Blood Count 6.16H, Hemoglobin 13.0L, Hematocrit 44.1, Mean Corpuscular Volume 72L, Mean Corpuscular Hemoglobin 21.2L, Mean Corpuscular Hemoglobin Concent 29.5L, Red Cell Distribution Width 16.9H, Platelet Count 1021*H, Mean Platelet Volume 7.1, Neutrophils (%) (Auto) , Lymphocytes (%) (Auto) , Monocytes (%) (Auto) , Eosinophils (%) (Auto) , Basophils (%) (Auto) , Differential Total Cells Counted 100, Neutrophils % ( Manual) 86H, Lymphocytes % (Manual) 5L, Monocytes % (Manual) 5, Eosinophils % ( Manual) 0, Basophils % (Manual) 0, Myelocytes % 1H, Band Neutrophils 3, Nucleated Red Blood Cells 1, Other Cell Type , Platelet Estimate IncreasedH, Platelet Morphology Normal, Hypochromasia 2+, Anisocytosis 1+, Microcytosis 2+, Sodium Level 136, Potassium Level 6.3*H, Chloride Level 105, Carbon Dioxide Level 19L, Anion Gap 12, Blood Urea Nitrogen 45H, Creatinine 2.3#H, Estimat Glomerular Filtration Rate , Glucose Level 249H, Uric Acid 8.9H, Calcium Level 8.0L, Total Creatine Kinase 41 03/31/17 15:45: Sodium Level 141, Potassium Level 6.3*H, Chloride Level 107, Carbon Dioxide Level 12L, Anion Gap 22H, Blood Urea Nitrogen 56H, Creatinine 3.1H, Estimat Glomerular Filtration Rate , Glucose Level 167H, Calcium Level 7.8L 03/31/17 19:31: Arterial Blood pH 7.072*L, Arterial Blood Partial Pressure CO2 30.1L, Arterial Blood Partial Pressure O2 329.8H, Arterial Blood HCO3 8.6L, Arterial Blood Oxygen Saturation 99.0H, Arterial Blood Base Excess -20.3, Lele Test Positive 03/31/17 20:43: White Blood Count 55.5*H, Red Blood Count 3.94L, Hemoglobin 8.6#L, Hematocrit 29.3#L, Mean Corpuscular Volume 74L, Mean Corpuscular Hemoglobin 21.8L, Mean Corpuscular Hemoglobin Concent 29.4L, Red Cell Distribution Width 17.6H, Platelet Count 569H, Mean Platelet Volume 6.8, Neutrophils (%) (Auto) , Lymphocytes (%) (Auto) , Monocytes (%) (Auto) , Eosinophils (%) (Auto) , Basophils (%) (Auto) , Differential Total Cells Counted 100, Neutrophils % ( Manual) 65, Lymphocytes % (Manual) 9L, Monocytes % (Manual) 4, Eosinophils % ( Manual) 0, Basophils % (Manual) 0, Band Neutrophils 22H, Platelet Estimate IncreasedH, Platelet Morphology , Hypochromasia 2+, Anisocytosis 2+, Microcytosis 2+, Sodium Level 139, Potassium Level 6.5*H, Chloride Level 109H, Carbon Dioxide Level 11L, Anion Gap 19H, Blood Urea Nitrogen 54H, Creatinine 3.4H, Estimat Glomerular Filtration Rate , Glucose Level 261H, Calcium Level 7.2L, Giant Platelets 1+, Polychromasia 1+, Phosphorus Level 8.8H, Magnesium Level 2.1, Total Bilirubin 0.5, Aspartate Amino Transf (AST/SGOT) 141H, Alanine Aminotransferase (ALT/SGPT) 114H, Alkaline Phosphatase 125, Total Protein 3.6L, Albumin 2.3L, Globulin 1.3, Albumin/Globulin Ratio 1.7 03/31/17 22:00: Arterial Blood pH 6.780*L, Arterial Blood Partial Pressure CO2 53.7H, Arterial Blood Partial Pressure O2 387.8H, Arterial Blood HCO3 7.8L, Arterial Blood Oxygen Saturation 99.0H, Arterial Blood Base Excess -26, Lele Test Positive 03/31/17 23:00: White Blood Count 80.6*H, Red Blood Count 3.24L, Hemoglobin 7.1L, Hematocrit 24.0L, Mean Corpuscular Volume 74L, Mean Corpuscular Hemoglobin 22.0L, Mean Corpuscular Hemoglobin Concent 29.7L, Red Cell Distribution Width 17.2H, Platelet Count 431, Mean Platelet Volume 6.6, Neutrophils (%) (Auto) , Lymphocytes (%) (Auto) , Monocytes (%) (Auto) , Eosinophils (%) (Auto) , Basophils (%) (Auto) , Differential Total Cells Counted 100, Neutrophils % ( Manual) 46, Lymphocytes % (Manual) 11L, Monocytes % (Manual) 6, Eosinophils % ( Manual) 0, Basophils % (Manual) 0, Metamyelocytes % 9H, Myelocytes % 3H, Band Neutrophils 25H, Nucleated Red Blood Cells 2, Platelet Estimate IncreasedH, Platelet Morphology Normal, Polychromasia 1+, Hypochromasia 1+, Anisocytosis 2+ , Microcytosis 2+, Sodium Level 145, Potassium Level 5.5H, Chloride Level 114H, Carbon Dioxide Level 12L, Anion Gap 19H, Blood Urea Nitrogen 49H, Creatinine 3.3H, Estimat Glomerular Filtration Rate , Glucose Level 236H, Calcium Level 6.8L, Total Bilirubin 0.3, Aspartate Amino Transf (AST/SGOT) 417H, Alanine Aminotransferase (ALT/SGPT) 385H, Alkaline Phosphatase 153H, Pro-B-Type Natriuretic Peptide 1602H, Total Protein 2.7L, Albumin 1.6L, Globulin 1.1, Albumin/Globulin Ratio 1.4 Height (Feet): 5 Height (Inches): 7.00 Weight (Pounds): 148 Abdomen: abnormal bowel sounds, distended - minimal hematuria from the casper, tender Gigi Terrell MD Apr 01, 2017 00:03
[2017-04-01] MEDS: DuoNeb 0.5-3(2.5)mg/3ml neb HHN SCH (01:00)
[2017-04-01] MEDS ORDERED: NS 275ml ONE (03:04)
[2017-04-01] MEDS ORDERED: D5W 275ml ONE (03:04)
--- NOTE | 2017-04-01 03:15 | Progress Note ---
Subjective: The patient [facility] The patient was transferred to the ICU in critical condition. He underwent a transurethral resection of the prostate yesterday and cystolitholapaxy. He is doing well. He tolerated surgery well and was transferred to the regular floor. He was seen by Dr. Bonilla this morning and I had multiple discussions with the nurses about his conditions during the day. The patient was stable. His blood pressure was in the 100s with normal pulse. However, Dr. Bonilla noticed that his potassium in the morning was 6.2 and was ordering Kayexalate and bicarb as his treatment. I was called by the nurse around 6:30. The patient was deteriorating and his breathing becoming more labored and his blood pressure dropped to 80s and I asked her to transfer the patient to the ICU immediately and was on my way to see him. When I arrived to the ICU, the patient was in critical condition, but he was responsive. He responded to commands. He was very talkative with me and discussed. He was alert and oriented. His breathing was slightly labored, but he was saturating 100% on a non-rebreather mask and his blood pressure was without pressors approximately 90/40-50 with a pulse of 60-70. The blood was drawn and was pending. I called Dr. Bonilla and reported his condition as a critical care doctor, but I also called the emergency room to put a central line on him to continue hydration and close monitoring. I also warned the emergency room doctor that the patient may need to be intubated if his breathing will be deteriorating. The doctor responded and came to the ICU. While he was placing the central line, the patient's condition deteriorated. He became more obtunded and pale and we immediately intubated the patient. He did have an emesis right before the intubation, which was suctioned and the airway was controlled. At that point, the patient coded and the [facility] team was called in and after multiple attempts run by the doctor from the emergency room, the patient was brought back to sinus rhythm. His blood pressure stabilized at approximately 104/60 and pulse was 80. He was started on Levophed and he was actually making urine and his blood was drawn and sent back again. The ABG came back with critical condition of pH of 6.75. Dr. Bonilla was called again. After he stabilized 30 minutes later, he coded again. The [facility] team was called again. Dr. Bonilla arrived and was continuing to resuscitate the patient. He received more intravenous fluids, bicarb, insulin, and critical care team was managing him at this point. From the urological standpoint, his incision was intact. There was no evidence of hematoma and no evidence of hematuria. The multiple blood tests as well as the ABG results are all in the chart. Gigi Terrell M.D. DR: FABIO JOB#: [id number] CC:
--- NOTE | 2017-04-01 03:30 | Operative Note - Dictated ---
DATE OF OPERATION: 03/30/2017 PREOPERATIVE DIAGNOSIS: 1. Large bladder stone. 2. Recurrent urinary tract infections. 3. Benign prostatic hypertrophy. OPERATION PERFORMED: Open cystolitholapaxy with transurethral resection of the prostate. INDICATIONS FOR SURGERY: The patient had multiple discussions about his bladder stone, recurrent UTIs, and urosepsis. He was in discussions about his surgery to remove the bladder stone and treat his BPH and finally made a decision to proceed with the surgery. He was on continuous antibiotic regimens over the years with alpha blockers without any success. I discussed the treatment options with himself several times and I discussed these treatment options with his daughter and they wanted to proceed with cystolitholapaxy and transurethral resection of prostate. I explained to them that he may need open cystolitholapaxy due to the huge size of the stone and they signed a consent. All potential complications were discussed with him including bleeding, MIP, , and he signed a consent. OPERATIVE NOTE: He was brought to the operating room, placed in the lithotomy position, and prepped and draped in a standard fashion under general anesthesia. Cystoscope was introduced into the bladder. A very large bladder stone and very dense was found in the bladder and decision was made to proceed with open cystolithotomy. This incision was made in the suprapubic area approximately 2 cm. The fascia was opened, rectus muscles were retracted laterally, and the bladder was exposed. and opened approximately 1 cm. Using forceps, stone was removed for pathologic examination. Bladder was closed in three layers with 2-0 Vicryl sutures, watertight, and then muscle and fascia was closed with interrupted 2-0 Vicryl sutures and christiano for the skin. After that, the resectoscope was introduced into the bladder. There was no evidence of residual stones. Standard transurethral resection of prostate was performed. All the chips of the prostate were resected and evacuated for pathological examination and bleeding was stopped with . Barnett catheter 24 three-way were placed and left indwelling and the patient was started on CBI. Sponge count and instrument count was correct. The patient tolerated the procedure well and transferred to recovery room in stable condition. Gigi Terrell M.D. DR: PONCE JOB#: [id number] CC:
--- NOTE | 2017-04-01 11:17 | Diagnostic Imaging Report ---
Indication: NG tube placement Comparison: None Single view of the abdomen obtained NG tube is entirely within the esophagus. Both the proximal port and tip are above the EG junction and not in the stomach. Impression: NG tube entirely in the esophagus
--- NOTE | 2017-04-01 11:20 | Diagnostic Imaging Report ---
Indication: NG tube Comparison: None A single view chest radiograph was obtained. Findings: The NG tube is entirely in the esophagus. Endotracheal tube is in good position. Impression: NG tube entirely in the esophagus
--- NOTE | 2017-04-01 12:09 | Diagnostic Imaging Report ---
Indication: Dyspnea Comparison: None A single view chest radiograph was obtained. Findings: Bones are osteopenic. The lungs are clear. Heart is mildly enlarged. Aorta is enlarged. Stomach is markedly distended with air. Impression: No acute cardiopulmonary abnormality is identified. Marked stomach distention
[2017-04-01] MEDS ORDERED: NS IVPB SCH (13:00)
[2017-04-01] MEDS ORDERED: GENTAMICIN IVPB SCH (13:00)
[2017-04-02] MEDS ORDERED: Vancomycin 1 GM in D5W 275 ML IVPB SCH (02:00)
--- NOTE | 2017-04-05 08:02 | Discharge Summary ---
Discharge Summary Hospital Course Date of Admission Mar 30, 2017 at 09:53 Date of Discharge Apr 01, 2017 at 03:05 Admitting Diagnosis FREDERICK Salvador is a 81 year old male who was admitted on Mar 30, 2017 at 09: 53 for elective surgery TURP Hospital Course summary #[id number] Discharge Discharge Disposition Patient , pronounced at 00:06 04/01/17 Discharge Diagnoses: Discharge Instructions Discharge Instructions Special Instructions I have been assigned to complete a D/C Summary on this account. I was not involved in the patient management Hanh Gonzalez NP (Vanchtein) Apr 05, 2017 08:02
--- NOTE | 2017-04-05 12:02 | Discharge Summary 2 SIG ---
DATE OF EXPIRATION: 04/01/2017. REASON FOR HOSPITALIZATION: An 81-year-old male with history of diabetes, hypertension, benign prostatic hypertrophy, gout, presented for elective TURP. The patient had a large bladder stone and recurrent urinary tract infection. ADMITTING DIAGNOSES: Include: 1. Large bladder stone. 2. Recurrent urinary tract infection. 3. Benign prostatic hypertrophy. 4. Hypertension. 5. Diabetes. 6. Gout. Hospital Course: The patient undergone elective surgery open cystolitholapaxy with TURP on 03/30/2017. Initially after surgery, placed to Med/Surg floor. The patient noted with leukocytosis. Leukocytosis present. Postoperatively, WBC 31.3, potassium 5.1, BUN 37, and creatinine 1.3. The patient was on continuous bladder irrigation. Urine still was bloody. Pain was addressed. The next day, WBC up to 47.3, platelets up to 1021, and renal parameters revealed evidence of acute renal failure with BUN 45 and creatinine 2.3. Potassium was 6.3. At that time, Internal Medicine doctor seen the patient for postoperative care. Nephrology was called for consult. 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 Kayexalate was administered. The patient was on the IV fluids. He recommended avoid nephrotoxic and recommended changing antibiotics. Renal parameters and electrolytes were closely monitored. The patient was awake, alert, and oriented. Blood sugar was managed with sliding scale of insulin. Pain management was addressed. Vital signs were stable. At around 6:30, the patient noted to have labored breathing and systolic blood pressure dropped to 80s. At that time, the patient was transferred to ICU and surgeon went immediately to see him. The patient was in critical condition. ED doctor was called to place a central line. At that time, the patient was responsive and talkative, who is alert and oriented, and spoke to the surgeon. His breathing was slightly labored, but he was saturating 100% on nonrebreathing mask and blood pressure without pressors was approximately with a heart rate of 60 to 70. Blood was drawn. Dr. Bonilla at that time arrived to intensive care unit as well. ED doctor placed a central line on the patient to continue hydration and hemodynamic support. At that time, while placing the central line, the patient became more obtunded and pale and required immediate intubation. The patient had emesis right before the intubation. He was suctioned and the airway was controlled, however, according to the ED notes the patient likely aspirated and became unresponsive and lost pulses. At that time, he was in asystole and CPR was called. The patient required oral intubation. ACLS protocol was initiated. ACLS medication provided. The patient had one episode of ventricular fibrillation and received shocks. The patient was finally brought back to sinus rhythm, started on Levophed. Blood pressure was not stable. The patient was on three different type of pressors including dopamine, Levophed, and phenylephrine over the maximum dose. However, blood pressure did not responded to all pressor despite maximum dose. The patient coded second time at 23:49 on 04/01/2017, first code was at 22:45 on 03/31/2017. The second time, the patient coded at 23:49 on 03/31/2017 and despite multiply attempts, unable to revive the patient. The patient was pronounced on 04/01/2017 at 00:06, cause of cardiopulmonary arrest. LABORATORY DATA: Of note, the patient's laboratory work, the one that was drawn at 11 o'clock, shows potassium dropped down from 6.5 to 5.5. Renal failure still with BUN 49 and creatinine 3.3. At that time, WBC was 80.6 with hemoglobin of 7.1 and hematocrit of 24, and platelets 431,000. Blood culture revealed no growth. FINAL DIAGNOSES: Include: 1. Possible sepsis. 2. Acute renal failure on possible chronic renal insufficiency. 3. Shock. 4. Status post cardiac arrest x2. 5. Acute respiratory failure, requiring intubation. 6. Aspiration. 7. Acute metabolic acidosis. 8. Large bladder stone. 9. Recurrent urinary tract infection. 10. Benign prostatic hypertrophy. 11. Status post 03/30/2017 open cystolitholapaxy with transurethral resection of prostate. 12. History of hypertension. 13. Diabetes with nephropathy. 14. Gout. Gigi Terrell M.D. I have been assigned to dictate discharge summary on this account and I was not involved in the patient's management. Hanh Gonzalez N.P. (vanchtein) DR: PAPA JOB#: [id number] CC:
== END 2017-04-01 03:05 | disposition expired | DRG 713 ==
LOC: SDSOVERFLO 09:53 → 3E 16:43 → ICU 03-31 19:43
PROC: 0T7B8DZ Dilation of Bladder with Intraluminal Device, Via Natural or Artificial Opening Endoscopic (ICD-10-PCS; principal; 2017-03-30 12:45)
PROC: 0VT08ZZ Resection of Prostate, Via Natural or Artificial Opening Endoscopic (ICD-10-PCS; principal; 2017-03-30 12:45)
PROC: 0TCB8ZZ Extirpation of Matter from Bladder, Via Natural or Artificial Opening Endoscopic (ICD-10-PCS; principal; 2017-03-30 12:45)
PROC: 3E033XZ Introduction of Vasopressor into Peripheral Vein, Percutaneous Approach (ICD-10-PCS; 2017-03-31)
PROC: 5A12012 Performance of Cardiac Output, Single, Manual (ICD-10-PCS; 2017-03-31)
PROC: 5A1935Z Respiratory Ventilation, Less than 24 Consecutive Hours (ICD-10-PCS; 2017-03-31)
PROC: 06HM33Z Insertion of Infusion Device into Right Femoral Vein, Percutaneous Approach (ICD-10-PCS; 2017-03-31)
PROC: 0BH18EZ Insertion of Endotracheal Airway into Trachea, Via Natural or Artificial Opening Endoscopic (ICD-10-PCS; 2017-03-31)
DX: N40.0 Benign prostatic hyperplasia without lower urinary tract symptoms (principal); N17.0 Acute kidney failure with tubular necrosis; I46.9 Cardiac arrest, cause unspecified; J96.00 Acute respiratory failure, unspecified whether with hypoxia or hypercapnia; A41.9 Sepsis, unspecified organism; R57.9 Shock, unspecified; E87.5 Hyperkalemia; F03.90 Unspecified dementia, unspecified severity, without behavioral disturbance, psychotic disturbance, mood disturbance, and anxiety; I10 Essential (primary) hypertension; M10.9 Gout, unspecified; N21.0 Calculus in bladder; E11.21 Type 2 diabetes mellitus with diabetic nephropathy; F32.9 Major depressive disorder, single episode, unspecified; F41.9 Anxiety disorder, unspecified; M19.90 Unspecified osteoarthritis, unspecified site; Z88.0 Allergy status to penicillin; Z87.440 Personal history of urinary (tract) infections; Z86.73 Personal history of transient ischemic attack (TIA), and cerebral infarction without residual deficits
CPT/HCPCS: 36415; 36600; 71010; 74000; 80048; 80053; 82360; 82550; 82803; 82962; 83735; 83880; 84100; 84132; 84550; 85007; 85025; 86850; 86900; 86901; 87040; 87081; 92950; 93005; 94002; 94003; 94150; 94664; 94760; J0171; J2370; J2405; J2765; S0077